=== PATIENT | female | born 1960 | race Caucasian/White ===

== ENCOUNTER → 2016-08-16 | Outpatient (CLI) | payer BC, OTHER ==
--- NOTE | 2016-08-16 11:14 | REPMRS ---
Patient History The patient states she had a clinical breast exam in 2015. Patient is postmenopausal. Family history of colorectal cancer in mother at age 67, unknown cancer in 2 paternal aunts at age 50 or over, breast cancer in maternal grandmother at age 50 or over, and unknown cancer in brother at age 55. Took hormonal contraceptives for 15 years. Took unspecified hormones for 2 years. Digital Mammo Screening Bilat: August 16, 2016 - Exam #: [id number] Bilateral CC and MLO view(s) were taken. Technologist: Hallie Mercado, Technologist Prior study comparison: June 14, 2015, bilateral digital mammo screening bilat performed at [facility]. April 20, 2014, bilateral digital mammo screening bilat performed at [facility]. FINDINGS: The breast tissue is heterogeneously dense. This may lower the sensitivity of mammography. There has been no change in the appearance of the mammogram from the prior studies. There is a moderate amount of residual fibroglandular tissue which is fairly symmetric. There is no interval development of dominant mass, areas of architectural distortion, or clustered microcalcification typical of malignancy. ASSESSMENT: BI-RADS/ACR category 1 mammogram. Negative. Recommendation Routine screening mammogram in 1 year (for women over age 40). This mammogram was interpreted with the aid of an FDA-approved computer-aided dectection system. Electronically Signed By: Cheko Phillips MD 08/16/16 7051
== END ==
LOC: M RAD 09:34
PROVIDERS: ATTEND Nurse Practitioner Family
DX: Z12.31 Encounter for screening mammogram for malignant neoplasm of breast (principal); R92.8 Other abnormal and inconclusive findings on diagnostic imaging of breast; Z80.0 Family history of malignant neoplasm of digestive organs; Z92.0 Personal history of contraception

== ENCOUNTER → 2018-06-08 | Outpatient (CLI) | payer BC, OTHER ==
--- NOTE | 2018-06-08 12:41 | REPMRS ---
Patient History The patient states she had a clinical breast exam in 2017. Family history of breast cancer at age 50 or over in maternal grandmother, colorectal cancer at age 67 in mother, unknown cancer at age 50 or over in paternal aunt, unknown cancer at age 50 or over in paternal aunt, unknown cancer at age 55 in brother. Took hormonal contraceptives for 15 years. Took unspecified hormones for 2 years. 3D TOMOSYNTHESIS WAS PERFORMED. Digital Mammo Screening Bilat: June 08, 2018 - Exam #: [id number] Bilateral CC and MLO view(s) were taken. Technologist: Gely Jaime, Technologist Prior study comparison: August 16, 2016, bilateral digital mammo screening bilat performed at [facility]. June 14, 2015, bilateral digital mammo screening bilat performed at [facility]. FINDINGS: The breast tissue is heterogeneously dense. This may lower the sensitivity of mammography. There has been no change in the appearance of the mammogram from the prior studies. There is a moderate amount of residual fibroglandular tissue which is fairly symmetric. There is no interval development of dominant mass, areas of architectural distortion, or clustered microcalcification typical of malignancy. Assessment: BI-RADS/ACR category 1 mammogram. Negative Mammogram. Recommendation Routine screening mammogram in 1 year (for women over age 40). This mammogram was interpreted with the aid of an FDA-approved computer-aided dectection system. Electronically Signed By: Cheko Phillips MD 06/08/18 [id number]
== END ==
LOC: M RAD 10:18
PROVIDERS: ATTEND Nurse Practitioner Family
DX: Z12.31 Encounter for screening mammogram for malignant neoplasm of breast (principal); Z80.3 Family history of malignant neoplasm of breast; Z80.0 Family history of malignant neoplasm of digestive organs; Z92.0 Personal history of contraception; Z92.29 Personal history of other drug therapy

== ENCOUNTER → 2019-04-13 | Outpatient (REF) | payer OTHER ==
[2019-04-13 13:41] LABS: FERRITIN 272 NG/ML (8-252); IRON (FE) 194 UG/DL (50-170)
== END ==
LOC: M LAB REF 12:22
PROVIDERS: ATTEND Nurse Practitioner Family
DX: R53.83 Other fatigue (principal)

== ENCOUNTER → 2020-05-16 | Outpatient (REF) | payer OTHER ==
[2020-05-16 17:13] LABS: PERCENT SATURATION 40.6 % (13.2-45.0)
== END ==
LOC: M LAB REF 16:22
PROVIDERS: ATTEND Registered Nurse
DX: Z83.49 Family history of other endocrine, nutritional and metabolic diseases (principal)

== ENCOUNTER → 2020-06-14 | Outpatient (CLI) | payer OTHER ==
[~2020-06-14] MED LIST: D 1010004 PO; LEVOTAB10 PO; METF500T13 PO
== END ==
LOC: M LABSMTC 12:53
PROVIDERS: ATTEND Anesthesiology
DX: Z01.812 Encounter for preprocedural laboratory examination (principal); Z20.822 Contact with and (suspected) exposure to COVID-19

== ENCOUNTER 2020-06-19 10:53 | Day surgery (SDC) | payer BC, OTHER ==
[~2020-06-19] VITALS: Ht 162.6 cm; Wt 92.1 kg
[~2020-06-19 10:53] MED LIST changes: +NS 1,000 ML IV ONE
[2020-06-19] MEDS ORDERED: LIDOCAINE 2% 100MG/5ML SDV (FOR ANES.) As Ordered ONE (12:10)
[2020-06-19] MEDS ORDERED: propofoL 500 MG/50 ML VIAL As Ordered ONE (12:10)
--- NOTE | 2020-06-19 12:30 | ROOR ---
Patient Name: Nata Thurston Procedure Date: 06/19/2020 12:06 PM Date of : 1960 Age: 60 Room: [facility] Gender: Female Note Status: Finalized Procedure: Total Colonoscopy to Cecum + Cold Snare Polypectomy Indications: Colon cancer screening in patient at increased risk: Colorectal cancer in mother Providers: Miles Ambrocio MD Referring MD: HEATHER TIM JR, MD Requesting Provider: Medicines: Monitored Anesthesia Care Complications: No immediate complications. Procedure: Pre-Anesthesia Assessment: - The heart rate, respiratory rate, oxygen saturations, blood pressure, adequacy of pulmonary ventilation, and response to care were monitored throughout the procedure. The Colonoscope was introduced through the anus and advanced to the cecum, identified by appendiceal orifice and ileocecal valve. The colonoscopy was performed without difficulty. The patient tolerated the procedure well. The quality of the bowel preparation was excellent. Findings: The perianal and digital rectal examinations were normal. Non-bleeding internal hemorrhoids were found during retroflexion. The hemorrhoids were small and Grade I (internal hemorrhoids that do not prolapse). A small polyp was found at 60 cm proximal to the anus. The polyp was sessile. The polyp was removed with a cold snare. Resection and retrieval were complete. The exam was otherwise without abnormality on direct and retroflexion views. Impression: - Non-bleeding internal hemorrhoids. - One small polyp at 60 cm proximal to the anus, removed with a cold snare. Resected and retrieved. - The examination was otherwise normal on direct and retroflexion views. - The exam was otherwise normal to the cecum. Recommendation: - Patient has a contact number available for emergencies. The signs and symptoms of potential delayed complications were discussed with the patient. Return to normal activities tomorrow. Written discharge instructions were provided to the patient. - High fiber diet. - Discharge patient to home. - Continue present medications. - Await pathology results. - Telephone GI clinic for pathology results in 1 week. - Repeat colonoscopy in 5 years for surveillance. - Return to referring physician. - The findings and recommendations were discussed with the patient. Procedure Code(s): --- Professional --- 61559, Colonoscopy, flexible; with removal of tumor(s), polyp(s), or other lesion(s) by snare technique Diagnosis Code(s): --- Professional --- Z80.0, Family history of malignant neoplasm of digestive organs K64.0, First degree hemorrhoids K63.5, Polyp of colon CPT copyright 2019 [employer]. All rights reserved. The codes documented in this report are preliminary and upon inpatient coder review may be revised to meet current compliance requirements. Miles Ambrocio MD Miles Ambrocio MD 06/19/2020 12:30:09 PM Electronically signed by Miles Ambrocio MD Number of Addenda: 0 Note Initiated On: 06/19/2020 12:06 PM Estimated Blood Loss: Estimated blood loss: none.
[2020-06-19 12:50] VITALS: BP 172/85
== END 2020-06-19 13:07 | disposition home or self-care (01) ==
LOC: M OPP 10:53
PROVIDERS: ATTEND Internal Medicine Gastroenterology
DX: Z12.11 Encounter for screening for malignant neoplasm of colon (principal); Z80.0 Family history of malignant neoplasm of digestive organs; D12.6 Benign neoplasm of colon, unspecified; K64.0 First degree hemorrhoids; E11.9 Type 2 diabetes mellitus without complications; K21.9 Gastro-esophageal reflux disease without esophagitis; Z87.891 Personal history of nicotine dependence; Z79.84 Long term (current) use of oral hypoglycemic drugs; Z79.899 Other long term (current) drug therapy

== ENCOUNTER → 2020-08-07 | Outpatient (CLI) | payer BC, OTHER ==
[~2020-08-07] MED LIST changes: -NS 1,000 ML IV ONE; +ZINC1TAB2 PO
--- NOTE | 2020-08-09 10:37 | ECHO ---
DATE OF PROCEDURE: 08/07/2020 Age: 60 Gender: Female Height: 163 cm Weight: 92.8 kg Body surface area: 1.97 m2 PATIENT LOCATION: Outpatient. REFERRING PHYSICIAN: Santiago Roe M.D. INDICATION: Hemochromatosis. MEASUREMENTS: 2D Measurements: RV 3.6 cm LV 4.8 cm Septum 0.8 cm Posterior wall 0.8 cm Aortic Root 3.2 cm LA 3.6 cm LVEF 65% Doppler Measurements: AV 1.7 m/s LVOT 1.1 m/s LVOT diameter 1.9 cm MV-E 79, A 72, E/A ratio 1 Early mitral deceleration time 208 msec E prime medial 6.4, A prime medial 9, E prime lateral 9.8 Average E/E prime ratio 9.8/PCWP - 14 mmHg PV 0.9 m/s Pulmonary artery acceleration time 134 msec RVSP 24 mmHg IVC 1.0 cm COMMENTS: Sinus bradycardia without intraventricular conduction disturbance. M-mode and two-dimensional echocardiography was performed with pulse, continuous wave, color flow, and tissue Doppler studies. Normal left ventricular size, wall thickness, and wall motion. Normal left atrial size and Doppler assessment of LV diastolic function and estimated mean left atrial pressure. Normal right heart chamber sizes and motion and estimated pulmonary arterial pressure. Somewhat reduced IVC size with complete collapse in keeping with somewhat low central venous pressure. Normal aortic dimensions. Normal aortic valve appearance and function. Normal appearing mitral valve apparatus and leaflet excursion with no posterior systolic buckling. No more than trace mitral insufficiency. Normal appearing and functioning tricuspid valve with very mild insufficiency. No apparent intracardiac mass or pericardial effusion. MTDD
== END ==
LOC: M CARPUL 13:25
PROVIDERS: ATTEND Internal Medicine Hematology & Oncology
DX: R00.1 Bradycardia, unspecified (principal); I87.1 Compression of vein

== ENCOUNTER → 2020-08-09 | Outpatient (CLI) | payer BC, OTHER ==
--- NOTE | 2020-08-09 09:31 | REP ---
INDICATION: HEMOCHROMTOSIS TECHNIQUE: Real time B-mode giron scale ultrasound examination using curved array transducer. FINDINGS: Liver is mildly echogenic suggesting fatty infiltration. No focal hepatic lesion identified. Liver measures 19.1 cm in craniocaudal length. Spleen, and visualized pancreas are normal in contour, size, echogenicity, and overall appearance. No focal splenic or pancreatic lesions are identified. Gallbladder is normal without gallstones, wall thickening, or pericholecystic fluid. No biliary ductal dilatation is appreciated and the common bile duct measures 3.7 mm diameter. The bilateral kidneys are normal in reniform shape without hydronephrosis or obvious abnormality. Right kidney measures 12.2 x 5.0 x 4.3 cm. Left kidney measures 11.4 x 5.5 x 4.1 cm. Visualized abdominal aorta appears relatively normal and measures 1.6 cm maximal diameter. No obvious ascites. IMPRESSION: 1. Findings suggesting hepatosteatosis and mild hepatomegaly. No focal hepatic lesion identified. 2. Otherwise normal complete abdominal ultrasound. <Electronically signed by Gerson Araya > 08/09/20 0954
== END ==
LOC: M RAD 08:43
PROVIDERS: ATTEND Internal Medicine Hematology & Oncology
DX: E83.110 Hereditary hemochromatosis (principal)

== ENCOUNTER → 2020-09-14 | Outpatient (CLI) | payer BC, OTHER ==
--- NOTE | 2020-09-14 08:59 | REPMRS ---
Patient History The patient states she had a clinical breast exam in 2020. Family history of breast cancer at age 50 or over in maternal grandmother, colorectal cancer at age 67 in mother, unknown cancer at age 50 or over in paternal aunt, unknown cancer at age 50 or over in paternal aunt, unknown cancer at age 55 in brother. Took hormonal contraceptives for 15 years. Took unspecified hormones for 2 years. No breast complaints today Patient signed the MRS sheet No covid vaccine Priors on PACS Patient Identification Verified Digital Woman Screen Mammo: September 14, 2020 - Exam #: [id number] Bilateral CC and MLO view(s) were taken. Technologist: Katlyn Chiang, Technologist Prior study comparison: June 08, 2018, bilateral digital mammo screening bilat, performed at [facility]. August 16, 2016, bilateral digital mammo screening bilat, performed at [facility]. FINDINGS: There are scattered fibroglandular densities. Screening. Digital screening (2D) mammography was performed bilaterally in the CC and MLO projections. Additionally, breast tomosynthesis (3D mammography) was performed bilaterally in the CC and MLO projections. Todays exam was compared to the prior exam/exams. By history, the patient has no complaints of a palpable breast abnormality or other significant breast complaints. The breasts are unchanged in size and shape. There are no jose angel-soft tissue densities or spiculated masses. There is no internal architectural distortion. Once again, stable benign appearing calcifications are seen.There are no suspicious jose angel-calcific clusters. Skin thickening or nipple retraction is not present. IMPRESSION: BI-RADS Category 2- Benign Findings. There is no evidence of malignant alteration of the breasts. Followup examination recommended in one year. The Volpara volumetric breast density category is B, there are scattered areas of fibroglandular density. This mammogram was read with the assistance of [employer],an FDA approved computer aided detection system for mammography. The lifetime Tyrer-Cuzick score is 9.2 % Negative x-ray reports should not delay surgical consultation if a dominant or clinically suspicious mass is present. Not all breast cancers can be identified by mammography. Therefore, we recommend that you continue to perform regular breast self-examination and physical examination and then promptly contact your physician of any concerns or changes. Adenosis and dense breasts may obscure an underlying neoplasm. Assessment: BI-RADS/ACR category 2 mammogram. Benign Findings. Recommendation Routine screening mammogram of both breasts in 1 year. Electronically Signed By: Mdoesto Dietz DO 09/14/20 0832
== END ==
LOC: M WHC 06:58
PROVIDERS: ATTEND Registered Nurse
DX: Z12.31 Encounter for screening mammogram for malignant neoplasm of breast (principal)

== ENCOUNTER → 2021-10-16 | Outpatient (REF) | payer BC, OTHER | LOC: M LAB REF 21:36 | PROVIDERS: ATTEND Physician Assistant | DX: L02.415 Cutaneous abscess of right lower limb (principal) ==

== ENCOUNTER → 2022-07-24 | Outpatient (CLI) | payer BC, OTHER ==
[~2022-07-24] MED LIST changes: +ZINC50TA4 PO
== END ==
LOC: M RAD 14:43
PROVIDERS: ATTEND Specialist
DX: E83.10 Disorder of iron metabolism, unspecified (principal)

== ENCOUNTER → 2023-08-21 | Outpatient (CLI) | payer BC ==
[~2023-08-21] MED LIST changes: +ELDERBERRY PO
== END ==
LOC: M WHC 07:41
PROVIDERS: ATTEND Nurse Practitioner Family
DX: Z12.31 Encounter for screening mammogram for malignant neoplasm of breast (principal); R92.323 Mammographic fibroglandular density, bilateral breasts

== ENCOUNTER → 2024-08-23 | Outpatient (CLI) | payer BC | LOC: M WHC 08:17 | PROVIDERS: ATTEND Nurse Practitioner Family | DX: Z12.31 Encounter for screening mammogram for malignant neoplasm of breast (principal); R92.323 Mammographic fibroglandular density, bilateral breasts ==